=== PATIENT | male | born 1960 | race Asian ===

== ENCOUNTER 2017-12-12 14:49 | Inpatient (IN) | payer OTHER ==
[~2017-12-12] VITALS: Ht 165.1 cm; Wt 75.0 kg
[2017-12-12] MEDS ORDERED: SOD1 PO (15:30)
[2017-12-12] MEDS ORDERED: CLOPIDOGREL75 M1 PO (15:32)
[2017-12-12] MEDS ORDERED: GOOD SENSE OMEP20 MG PO (15:32)
[2017-12-12] MEDS ORDERED: ATENOLOL100 MG PO (15:32)
[2017-12-12] MEDS ORDERED: ISOSORBIDE MONO30 MG PO (15:32)
[2017-12-12] MEDS ORDERED: LIPITOR80 MG PO (15:37)
[2017-12-12] MEDS ORDERED: HYZAAR1 TAB PO (15:37)
[2017-12-12] MEDS ORDERED: AZITHROMYCIN250 M1 (15:38)
[2017-12-12] MEDS ORDERED: METFORMIN HYDR500 M1 PO (15:39)
[2017-12-12] MEDS ORDERED: ACULAR LS5 ML OU (15:39)
[2017-12-12 15:58] LABS: PLATELET COUNT 301 x10^3mcL (130-400)
[2017-12-12 16:17] LABS: CK-MB 2.1 ng/mL (0-3.6)
[2017-12-12 16:23] LABS: ALKALINE PHOSPHATASE 225 U/L (46-116); ALT/SGPT 174 U/L (16-63); AST/SGOT 138 U/L (15-37); BILIRUBIN TOTAL 3.01 mg/dL (0.20-1.00); CHLORIDE SERUM 86 mmol/L (98-107); CREATININE SERUM 0.9 mg/dL (0.7-1.3); GFR1 > 60 mL/min; GLUCOSE SERUM 96 mg/dL (74-106); POTASSIUM SERUM 3.4 mmol/L (3.5-5.1)
[2017-12-12 16:26] LABS: ALBUMIN 2.1 g/dL (3.4-5.0); SODIUM SERUM 117 mmol/L (136-145); TOTAL PROTEIN, SERUM 5.5 g/dL (6.4-8.2)
[2017-12-12 16:32] LABS: RED CELL DISTRIBUTION WIDTH 30.2 % (11.5-14.5)
[2017-12-12 16:36] LABS: BAND NEUTROPHIL 1 % (0-10); BASOPHIL 0 % (0-2); MONOCYTE 4 % (0-7); SEGMENTED NEUTROPHILS 91 % (37-75)
[2017-12-12 16:37] LABS: burr cell (echinocyte) 2+; rbc morphology (normal/abnorm) ABNORMAL (NORMAL)
[2017-12-12 16:38] LABS: PLATELET MORPHOLOGY GIANT PLATELET SEEN
[2017-12-12 19:09] LABS: FREE T4 0.83 ng/dL (0.76-1.46); T3 TOTAL 0.26 ng/mL
[2017-12-12 19:10] LABS: FREE THYROXINE INDEX 1.5 ug/dL (1.4-4.5); T4(THYROXINE) 4.1 ug/dL (4.7-13.3)
[2017-12-12 19:18] LABS: UA SPECIFIC GRAVITY <=1.005 (1.005-1.035); microscopic required? YES; urine erythrocyte 1+ (NEGATIVE)
[2017-12-12 19:23] VITALS: BP 140/82
[2017-12-12 19:23] LABS: PHOSPHOROUS 3.2 mg/dL (2.5-4.9)
[2017-12-12 19:29] LABS: AMPHETAMINE QUAL UR NONE DETECTED (NEG <=1000)
[2017-12-12 19:55] VITALS: BP 88/55
[2017-12-12 20:09] LABS: CHOLESTEROL/HDL RATIO 12.2
[2017-12-12 20:14] LABS: CALCIUM 6.7 mg/dL (8.5-10.1); CARBON DIOXIDE 23.5 mmol/L (21-32); CHLORIDE SERUM 85 mmol/L (98-107); GFR1 > 60 mL/min; GLUCOSE SERUM 100 mg/dL (74-106); POTASSIUM SERUM 3.1 mmol/L (3.5-5.1)
[2017-12-12 20:18] LABS: SODIUM SERUM 120 mmol/L (136-145)
[2017-12-12 20:24] VITALS: BP 100/68
[2017-12-12 22:26] VITALS: BP 113/71
[2017-12-13] VITALS (9 sets, daily range): BP systolic 91–122; BP diastolic 58–76
[2017-12-13 01:59] LABS: CALCIUM 6.5 mg/dL (8.5-10.1); CARBON DIOXIDE 23.8 mmol/L (21-32); CHLORIDE SERUM 91 mmol/L (98-107); CREATININE SERUM 0.9 mg/dL (0.7-1.3); GFR1 > 60 mL/min; GLUCOSE SERUM 123 mg/dL (74-106)
[2017-12-13 02:07] LABS: SODIUM SERUM 122 mmol/L (136-145)
[2017-12-13 04:52] LABS: CALCIUM 6.5 mg/dL (8.5-10.1); CARBON DIOXIDE 25.7 mmol/L (21-32); CHLORIDE SERUM 88 mmol/L (98-107); CREATININE SERUM 0.8 mg/dL (0.7-1.3); GFR1 > 60 mL/min; GLUCOSE SERUM 108 mg/dL (74-106); POTASSIUM SERUM 3.5 mmol/L (3.5-5.1)
[2017-12-13 04:54] LABS: SODIUM SERUM 122 mmol/L (136-145)
[2017-12-13 10:33] LABS: CALCIUM 6.6 mg/dL (8.5-10.1); CARBON DIOXIDE 24.5 mmol/L (21-32); CHLORIDE SERUM 88 mmol/L (98-107); CREATININE SERUM 0.8 mg/dL (0.7-1.3); GFR1 > 60 mL/min; GLUCOSE SERUM 118 mg/dL (74-106); POTASSIUM SERUM 3.7 mmol/L (3.5-5.1)
[2017-12-13 10:38] LABS: SODIUM SERUM 124 mmol/L (136-145)
[2017-12-13 13:10] LABS: CALCIUM 6.8 mg/dL (8.5-10.1); CARBON DIOXIDE 22.4 mmol/L (21-32); CHLORIDE SERUM 88 mmol/L (98-107); CREATININE SERUM 0.8 mg/dL (0.7-1.3); GFR1 > 60 mL/min; GLUCOSE SERUM 143 mg/dL (74-106); POTASSIUM SERUM 3.5 mmol/L (3.5-5.1)
[2017-12-13 13:13] LABS: SODIUM SERUM 124 mmol/L (136-145)
[2017-12-13 17:51] LABS: CALCIUM 6.6 mg/dL (8.5-10.1); CARBON DIOXIDE 23.1 mmol/L (21-32); GFR1 > 60 mL/min; GLUCOSE SERUM 135 mg/dL (74-106)
[2017-12-13 18:04] LABS: CHLORIDE SERUM 93 mmol/L (98-107); POTASSIUM SERUM 3.5 mmol/L (3.5-5.1)
[2017-12-13 18:05] LABS: SODIUM SERUM 124 mmol/L (136-145)
[2017-12-14] VITALS (15 sets, daily range): BP systolic 71–141; BP diastolic 43–122
[2017-12-14 06:14] LABS: PLATELET COUNT 196 x10^3mcL (130-400)
[2017-12-14 06:37] LABS: CALCIUM 6.7 mg/dL (8.5-10.1); CARBON DIOXIDE 24.3 mmol/L (21-32); CHLORIDE SERUM 95 mmol/L (98-107); CREATININE SERUM 0.9 mg/dL (0.7-1.3); GFR1 > 60 mL/min; GLUCOSE SERUM 99 mg/dL (74-106); POTASSIUM SERUM 3.3 mmol/L (3.5-5.1); SODIUM SERUM 127 mmol/L (136-145)
[2017-12-14 10:06] LABS: BAND NEUTROPHIL 46 % (0-10); BASOPHIL 0 % (0-2); MONOCYTE 1 % (0-7); SEGMENTED NEUTROPHILS 45 % (37-75); rbc morphology (normal/abnorm) ABNORMAL (NORMAL)
[2017-12-14 10:08] LABS: acanthocyte (spur cell) 1+; burr cell (echinocyte) 2+; schistocyte (helmet cell) 1+
[2017-12-14 10:10] LABS: target cell (codocyte) 1+
[2017-12-14] MEDS ORDERED: GLUCOPHAGE500 MG PO (12:47)
[2017-12-15] VITALS (17 sets, daily range): BP systolic 67–1001; BP diastolic 39–67
[2017-12-15 05:49] LABS: BASOPHIL % 0 % (0-2); PLATELET COUNT 153 x10^3mcL (130-400); RED CELL DISTRIBUTION WIDTH 30.7 % (11.5-14.5)
[2017-12-15 06:10] LABS: rbc morphology (normal/abnorm) ABNORMAL (NORMAL)
[2017-12-15 06:11] LABS: acanthocyte (spur cell) 4+; ovalocyte/elliptocyte 2+; schistocyte (helmet cell) 2+
[2017-12-15 06:38] LABS: CALCIUM 6.2 mg/dL (8.5-10.1); CHLORIDE SERUM 98 mmol/L (98-107); CREATININE SERUM 0.8 mg/dL (0.7-1.3); GFR1 > 60 mL/min; GLUCOSE SERUM 181 mg/dL (74-106); PHOSPHOROUS 2.3 mg/dL (2.5-4.9); POTASSIUM SERUM 3.3 mmol/L (3.5-5.1); SODIUM SERUM 130 mmol/L (136-145)
[2017-12-15 13:44] LABS: PLATELET COUNT 133 x10^3mcL (130-400)
[2017-12-15 13:54] LABS: BASOPHIL % 0 % (0-2); RED CELL DISTRIBUTION WIDTH 30.4 % (11.5-14.5)
[2017-12-15 14:19] LABS: rbc morphology (normal/abnorm) ABNORMAL (NORMAL)
[2017-12-15 14:25] LABS: acanthocyte (spur cell) 3+
[2017-12-15 14:26] LABS: schistocyte (helmet cell) 2+
[2017-12-16] VITALS (18 sets, daily range): BP systolic 77–127; BP diastolic 45–85
[2017-12-16 05:25] LABS: PLATELET COUNT 123 x10^3mcL (130-400); RED CELL DISTRIBUTION WIDTH 26.6 % (11.5-14.5)
[2017-12-16 05:47] LABS: CALCIUM 6.4 mg/dL (8.5-10.1); CARBON DIOXIDE 25.9 mmol/L (21-32); CHLORIDE SERUM 97 mmol/L (98-107); GFR1 > 60 mL/min; GLUCOSE SERUM 241 mg/dL (74-106); MAGNESIUM 1.9 mg/dL (1.8-2.4); PHOSPHOROUS 1.8 mg/dL (2.5-4.9); SODIUM SERUM 129 mmol/L (136-145)
[2017-12-16 05:51] LABS: POTASSIUM SERUM 2.9 mmol/L (3.5-5.1)
[2017-12-16 05:59] LABS: BAND NEUTROPHIL 23 % (0-10); METAMYELOCTE 7 % (0-2); MONOCYTE 1 % (0-7); SEGMENTED NEUTROPHILS 58 % (37-75)
[2017-12-16 06:01] LABS: acanthocyte (spur cell) 3+; rbc morphology (normal/abnorm) ABNORMAL (NORMAL)
[2017-12-16 06:04] LABS: PLATELET MORPHOLOGY LARGE PLATELET SEEN
[2017-12-16 11:04] LABS: RED BLOOD CELLS 3.35 M/mm3 (4.52-5.90)
[2017-12-16 11:09] LABS: IRON 46 ug/dL (65-170)
[2017-12-16 11:10] LABS: TOTAL IRON BINDING CAPACITY 63 ug/dL (250-450)
[2017-12-17] VITALS (18 sets, daily range): BP systolic 84–158; BP diastolic 52–97; Ht 165.1 cm; Wt 75.0 kg
[2017-12-17 05:29] LABS: CALCIUM 6.3 mg/dL (8.5-10.1); CARBON DIOXIDE 27.1 mmol/L (21-32); CHLORIDE SERUM 97 mmol/L (98-107); GFR1 > 60 mL/min; GLUCOSE SERUM 229 mg/dL (74-106); MAGNESIUM 2.1 mg/dL (1.8-2.4); PHOSPHOROUS 2.8 mg/dL (2.5-4.9); POTASSIUM SERUM 3.9 mmol/L (3.5-5.1); SODIUM SERUM 129 mmol/L (136-145)
[2017-12-17 05:48] LABS: PLATELET COUNT 82 x10^3mcL (130-400); RED CELL DISTRIBUTION WIDTH 26.2 % (11.5-14.5)
[2017-12-17 05:57] LABS: BAND NEUTROPHIL 23 % (0-10); METAMYELOCTE 4 % (0-2); MONOCYTE 3 % (0-7); MYELOCYTE 3 % (0-2); SEGMENTED NEUTROPHILS 58 % (37-75)
[2017-12-17 05:58] LABS: acanthocyte (spur cell) 3+; rbc morphology (normal/abnorm) ABNORMAL (NORMAL)
[2017-12-18] VITALS (12 sets, daily range): BP systolic 92–136; BP diastolic 62–90
[2017-12-18 05:45] LABS: BILIRUBIN DIRECT 1.05 mg/dL (0.0-0.2); BILIRUBIN TOTAL 1.28 mg/dL (0.20-1.00); CALCIUM 6.2 mg/dL (8.5-10.1); CARBON DIOXIDE 23.3 mmol/L (21-32); CREATININE SERUM 1.5 mg/dL (0.7-1.3); MAGNESIUM 2.2 mg/dL (1.8-2.4); PHOSPHOROUS 4.5 mg/dL (2.5-4.9); POTASSIUM SERUM 5.1 mmol/L (3.5-5.1)
[2017-12-18 05:46] LABS: TOTAL PROTEIN, SERUM 4.2 g/dL (6.4-8.2)
[2017-12-18 05:57] LABS: BASOPHIL % 0 % (0-2); PLATELET COUNT 79 x10^3mcL (130-400); RED CELL DISTRIBUTION WIDTH 26.9 % (11.5-14.5)
== END 2017-12-18 17:59 | disposition expired | DRG 720 ==
LOC: ED 14:49 → DU 18:10 → IC 18:10 → DU 19:05 → IC 12-14 10:04
PROVIDERS: Emergency Medicine; Family Medicine; Family Medicine Sports Medicine
PROC: 5A1955Z Respiratory Ventilation, Greater than 96 Consecutive Hours (ICD-10-PCS; principal; 2017-12-14)
PROC: 0BH17EZ Insertion of Endotracheal Airway into Trachea, Via Natural or Artificial Opening (ICD-10-PCS; 2017-12-14)
PROC: 30233N1 Transfusion of Nonautologous Red Blood Cells into Peripheral Vein, Percutaneous Approach (ICD-10-PCS; 2017-12-15)
DX: A41.9 Sepsis, unspecified organism (principal); N17.0 Acute kidney failure with tubular necrosis; J96.01 Acute respiratory failure with hypoxia; J69.0 Pneumonitis due to inhalation of food and vomit; R65.21 Severe sepsis with septic shock; E87.1 Hypo-osmolality and hyponatremia; K50.90 Crohn's disease, unspecified, without complications; E43 Unspecified severe protein-calorie malnutrition; I50.43 Acute on chronic combined systolic (congestive) and diastolic (congestive) heart failure; I11.0 Hypertensive heart disease with heart failure; I25.10 Atherosclerotic heart disease of native coronary artery without angina pectoris; E78.5 Hyperlipidemia, unspecified; E11.9 Type 2 diabetes mellitus without complications; Z95.1 Presence of aortocoronary bypass graft; K21.9 Gastro-esophageal reflux disease without esophagitis; I25.2 Old myocardial infarction; E78.1 Pure hyperglyceridemia; Z68.23 Body mass index [BMI] 23.0-23.9, adult; D64.9 Anemia, unspecified; D35.2 Benign neoplasm of pituitary gland; K80.20 Calculus of gallbladder without cholecystitis without obstruction; G47.30 Sleep apnea, unspecified
CPT/HCPCS: 36556; 36600; 82962; 83880; 84439; 85378; 87107; 87804; A4628; C9113; J0696; J1200; J1642; J1644; J1815; J1885; J1940; J1956; J2060; J2250; J2270; J2543; J2916; J2920; J3370; J3480; J3490; J7030; J7040; J7050; J7620; J7626; P9016; Q0092; Q9967